=== PATIENT | male | born 1960 | race Caucasian/White ===

== ENCOUNTER 2024-08-21 12:58 | Emergency (ER) | payer BC, OTHER, SELFPAY ==
[2024-08-21 13:06] VITALS: BP 171/106; PULSE 82; RESP 18; TEMP 37; O2SAT 95; BMI 29.5
--- NOTE | 2024-08-21 14:25 | ED_ITS ---
HPI - Wound/Laceration <Gloria Hammond PA-C - Last Filed: 08/21/24 14:54> General Chief Complaint: Wound/Laceration Stated Complaint: laceration r hand, open wound Time Seen by Provider: 08/21/24 14:25 Source: patient Mode of arrival: Ambulatory History of Present Illness HPI narrative: Mr. Wheeler is a 64-year-old male with no reported past medical history who presents to the emergency department for a laceration to his right hand that occurred 3 days ago. Patient states while he was cutting tape he accidentally cut the palm of his right hand 3 days ago. He is left-hand dominant. States that it has not been bleeding and he has been covering it with Neosporin but he decided to get it checked out today. Denies drainage, bleeding, redness surrounding the wound, fevers, chills, decreased range of motion. He is unsure of his last tetanus shot. Related Data Previous Rx's Medication Instructions Recorded cephalexin 500 mg capsule 500 mg PO TID 5 days #15 caps 08/21/24 Allergies Allergy/AdvReac Type Severity Reaction Status Date / Time No Known Drug Allergies Allergy Verified 08/21/24 13:06 Review of Systems <Gloria Hammond PA-C - Last Filed: 08/21/24 14:54> Review of Systems ROS Unobtainable: All systems reviewed & are unremarkable except as noted in HPI and below Patient History <Gloria Hammond PA-C - Last Filed: 08/21/24 14:54> Social History Smoking Status: Never smoker Smoking Status: Never smoker Exam <Gloria Hammond PA-C - Last Filed: 08/21/24 14:54> Narrative Exam Narrative: GENERAL: 64 year old patient appears stated age. Well-developed patient, in no acute distress. HEAD: Atraumatic. Normocephalic. NECK: Trachea midline. Cervical ROM intact. CARDIOVASCULAR: Regular rate RESPIRATORY: ?Nonlabored respirations. ?Speaking in clear, full sentences. ? EXTREMITIES: Approximately 3 cm linear laceration on the right palm just proximal to the 2nd MCP, no active bleeding, appears to be older wound, no purul ent drainage or surrounding erythema. Full range of motion of the right hand and sensation intact to light touch distal to the wound. Brisk capillary refill and strong radial pulse. NEURO: AOx3. ?Clear speech. ?Moves all 4 extremities appropriately. SKIN: No rash or erythema of visible areas accept for right palm wound described above. Initial Vital Signs Initial Vital Signs: Vital Signs Temperature 98.6 F 08/21/24 13:06 Pulse Rate 82 08/21/24 13:06 Respiratory Rate 18 08/21/24 13:06 Blood Pressure 171/106 H 08/21/24 13:06 Pulse Oximetry 95 08/21/24 13:06 Oxygen Delivery Method Room Air 08/21/24 13:06 <Haritha Seaman DO - Last Filed: 08/24/24 08:00> Initial Vital Signs Initial Vital Signs: Vital Signs Temperature 98.6 F 08/21/24 13:06 Pulse Rate 82 08/21/24 13:06 Respiratory Rate 18 08/21/24 13:06 Blood Pressure 171/106 H 08/21/24 13:06 Pulse Oximetry 95 08/21/24 13:06 Oxygen Delivery Method Room Air 08/21/24 13:06 Course <Gloria Hammond PA-C - Last Filed: 08/21/24 14:54> Orders Ordered: Discontinued Medications Bacitracin (Bacitracin Oint 0.9 Gm Pckt) 1 applic TOP NOW ONE Stop: 08/21/24 14:33 Last Admin: 08/21/24 14:43 Dose: 1 applic Documented By: ANTHONY Cephalexin HCl (Cephalexin 250 Mg Capsule) 500 mg PO NOW ONE Stop: 08/21/24 14:38 Last Admin: 08/21/24 14:43 Dose: 500 mg Documented By: ANTHONY Diphtheria/Tetanus/Acell Pertussis (Tet,Diph,Pertuss(Acell),Vac/Pf 0.5 Ml Syringe) 0.5 ml IM .ONCE ONE Stop: 08/21/24 14:33 Last Admin: 08/21/24 14:43 Dose: 0.5 ml Documented By: ANTHONY Vital Signs Vital signs: Vital Signs - 8 hr 08/21/24 13:06 Temperature 98.6 F Pulse Rate 82 Respiratory Rate 18 Blood Pressure 171/106 H Pulse Oximetry 95 Oxygen Delivery Method Room Air <Haritha Seaman DO - Last Filed: 08/24/24 08:00> Orders Ordered: Discontinued Medications Bacitracin (Bacitracin Oint 0.9 Gm Pckt) 1 applic TOP NOW ONE Stop: 08/21/24 14:33 Last Admin: 08/21/24 14:43 Dose: 1 applic Documented By: ANTHONY Cephalexin HCl (Cephalexin 250 Mg Capsule) 500 mg PO NOW ONE Stop: 08/21/24 14:38 Last Admin: 08/21/24 14:43 Dose: 500 mg Documented By: ANTHONY Diphtheria/Tetanus/Acell Pertussis (Tet,Diph,Pertuss(Acell),Vac/Pf 0.5 Ml Syringe) 0.5 ml IM .ONCE ONE Stop: 08/21/24 14:33 Last Admin: 08/21/24 14:43 Dose: 0.5 ml Documented By: ANTHONY Vital Signs Vital signs: Vital Signs - 8 hr 08/21/24 13:06 Temperature 98.6 F Pulse Rate 82 Respiratory Rate 18 Blood Pressure 171/106 H Pulse Oximetry 95 Oxygen Delivery Method Room Air MDM - Wound/Laceration <Gloria Hammond PA-C - Last Filed: 08/21/24 14:54> Medical Records Attestation: I reviewed the patient's medical records. MDM Narrative Medical decision making narrative: 64-year-old male with no reported past medical history who presents to the emergency department for a laceration to his right hand that occurred 3 days ago. Unsure of last Tdap. On exam patient is in no acute distress, nontoxic appearing, he is requesting discharge as soon as possible. On his right hand he has a 3 cm linear laceration just proximal to the 2nd MCP on the palmar side. It is clear that this laceration is old, no active bleeding, no signs of infection at this time. While laceration would have benefitted from suture repair within 1st 24 hours, discussed case with the attending physician and due to it being 3 days we will allow wound to heal by secondary intention. Discussed with the patient and he is agreeable to the plan, understands the importance of proper wound care. We will update his Tdap, cover empirically with cephalexin. Wound was cleansed, bacitracin applied, nonadherent dressing applied. Advised patient follow up with primary care doctor next week for wound recheck but return to the ED if any worsening symptoms or signs of infection. Also recommended patient follow up with primary care doctor for blood pressure recheck as it was elevated in triage today. Patient is requesting discharge immediately, he was provided with a card to follow up with the primary care doctor. He has having no pain at this time, stable for discharge home. Antibiotics sent to pharmacy of choice. Discharge Plan Departure Patient Disposition: Home Clinical Impression: Laceration of hand, right Qualifiers: Encounter type: initial encounter Foreign body presence: without foreign body Qualified Code(s): S61.411A - Laceration without foreign body of right hand, initial encounter Instructions: DI for Open Laceration Activity Restrictions/Additional Instructions: Dear Mr. Wheeler, Thank you for coming into the emergency department today. You were evaluated for a laceration on your right hand. Because this laceration occurred 3 days ago, we are unable to close it with stitches as this will increase the risk for infection. Instead the wound will need to heal on its own from the bottom up. Bacitracin antibiotic ointment was applied to the laceration and a nonadherent dressing was applied. Please keep the dressing on your wound clean, dry, and intact for the next 12-24 hours. After this time, you may remove the dressing and gently clean the wound with soap and water, then pat dry. Keep the wound clean and covered. Avoid soaking the wound in any water such as a bath, pool, or the ocean. If you develop any signs of wound infection such as increased redness, pus drainage, streaking redness, or fevers, please return to the ER immediately for evaluation. We updated your tetanus shot today. Please follow up with your primary care doctor within the next 2-3 days for ER follow-up. (If you do not have a PCP you can call [phone]. ?to schedule an appointment with an [facility] Primary Care Provider) IF YOU DEVELOP ANY NEW OR WORSENING SYMPTOMS, RETURN TO THE ER! Please read the attached instructions, they highlight more specific treatments and interventions for you at home. Thank you for letting me participate in your care, Gloria Hammond PA-C Prescriptions: New cephalexin 500 mg capsule 500 mg PO TID 5 Days Qty: 15 0RF Referrals: Miscellaneous,Doctor, [Primary Care Provider] - Stand Alone Forms: Patient Portal/API/Survey ED Sign-out <Haritha Seaman DO - Last Filed: 08/24/24 08:00> Cosign ED Attending Cosignature Attestation: I was available for consultation.
[2024-08-21] MEDS: BACITRACIN OINT 0.9 GM PCKT 1 APPLIC TOP (14:43)
[2024-08-21] MEDS: TET,DIPH,PERTUSS(ACELL),VAC/PF 0.5 ML SYRINGE IM (14:43)
[2024-08-21] MEDS: cephALEXin 250 MG CAPSULE 500 MG PO (14:43)
== END 2024-08-21 15:00 | disposition home or self-care (01) ==
PROVIDERS: Emergency Provider Physician Assistant
DX: S61.411A Laceration without foreign body of right hand, initial encounter (principal); W26.9XXA Contact with unspecified sharp object(s), initial encounter; Z23 Encounter for immunization
CPT/HCPCS: 90471; 99284; 90715

== ENCOUNTER 2024-08-26 12:02 | Emergency (ER) | payer OTHER, SELFPAY ==
[2024-08-26 12:08] VITALS: BP 110/75; PULSE 85; RESP 17; TEMP 37.1; O2SAT 99; BMI 29.5
--- NOTE | 2024-08-26 13:06 | ED.RECABL ---
HPI - Recheck/Abnormal Lab/Rx <Gloria Hammond PA-C - Last Filed: 08/26/24 13:18> General Chief Complaint: Recheck/Abnormal Lab/Rx Stated Complaint: f/u on finger/hand laceration Time Seen by Provider: 08/26/24 13:06 Source: patient Mode of arrival: Family Vehicle History of Present Illness HPI narrative: Mr. Wheeler is a pleasant 64-year-old male who presents to the emergency department for a right hand wound check. I saw the patient on 08/21/2024 for a laceration to the palmar aspect of his right hand. The patient's laceration had occurred 3 days prior to his ED evaluation. At that time the patient's Tdap was updated and because the wound had occurred 3 days prior, we discussed that the wound needs to heal by secondary intention, on its own, without stitches to decrease risk of infection. The wound was cleansed and irrigated, bacitracin dressing applied, and he was started on a 5 day course of cephalexin. Patient is almost done with his oral antibiotics and reports that the wound is healing well however he comes to the ED for wound recheck and to request stitches. He denies any redness, drainage, fevers, chills, any other concerns. Related Data Allergies Allergy/AdvReac Type Severity Reaction Status Date / Time No Known Drug Allergies Allergy Verified 08/26/24 12:12 Review of Systems <Gloria Hammond PA-C - Last Filed: 08/26/24 13:18> Review of Systems ROS Unobtainable: All systems reviewed & are unremarkable except as noted in HPI and below Patient History <Gloria Hammond PA-C - Last Filed: 08/26/24 13:18> Social History Smoking Status: Never smoker Smoking Status: Never smoker Exam <Gloria Hammond PA-C - Last Filed: 08/26/24 13:18> Narrative Exam Narrative: GENERAL: 64 year old patient appears stated age. Well-developed patient, in no acute distress. CARDIOVASCULAR: Regular rate RESPIRATORY: ?Nonlabored respirations. ?Speaking in clear, full sentences. EXTREMITIES: Approximately 3 cm linear laceration in the right palm just proximal to the 2nd MCP. Healing well. No drainage or surrounding erythema. NEURO: AOx3. ?Clear speech. ?Moves all 4 extremities appropriately. SKIN: No rash or erythema of visible areas except for laceration described above. Initial Vital Signs Initial Vital Signs: Vital Signs Temperature 98.7 F 08/26/24 12:08 Pulse Rate 85 08/26/24 12:08 Respiratory Rate 17 08/26/24 12:08 Blood Pressure 110/75 08/26/24 12:08 Pulse Oximetry 99 08/26/24 12:08 Oxygen Delivery Method Room Air 08/26/24 12:08 <Haritha Seaman DO - Last Filed: 08/31/24 23:58> Initial Vital Signs Initial Vital Signs: Vital Signs Temperature 98.7 F 08/26/24 12:08 Pulse Rate 85 08/26/24 12:08 Respiratory Rate 17 08/26/24 12:08 Blood Pressure 110/75 08/26/24 12:08 Pulse Oximetry 99 08/26/24 12:08 Oxygen Delivery Method Room Air 08/26/24 12:08 Course <Gloria Hammond PA-C - Last Filed: 08/26/24 13:18> Orders Ordered: Discontinued Medications Bacitracin (Bacitracin Oint 0.9 Gm Pckt) 1 applic TOP NOW ONE Stop: 08/26/24 13:12 Last Admin: 08/26/24 13:21 Dose: 1 applic Documented By: NGA Vital Signs Vital signs: Vital Signs - 8 hr 08/26/24 12:08 Temperature 98.7 F Pulse Rate 85 Respiratory Rate 17 Blood Pressure 110/75 Pulse Oximetry 99 Oxygen Delivery Method Room Air <Haritha Seaman DO - Last Filed: 08/31/24 23:58> Orders Ordered: Discontinued Medications Bacitracin (Bacitracin Oint 0.9 Gm Pckt) 1 applic TOP NOW ONE Stop: 08/26/24 13:12 Last Admin: 08/26/24 13:21 Dose: 1 applic Documented By: NGA Vital Signs Vital signs: Vital Signs - 8 hr 08/26/24 12:08 Temperature 98.7 F Pulse Rate 85 Respiratory Rate 17 Blood Pressure 110/75 Pulse Oximetry 99 Oxygen Delivery Method Room Air MDM - Recheck/Abnormal Lab/Rx <Gloria Hammond PA-C - Last Filed: 08/26/24 13:18> Medical Records Attestation: I reviewed the patient's medical records. MDM Narrative Medical decision making narrative: 64-year-old male who presents to the emergency department for a right hand wound check. I saw the patient on 08/21/2024 for a laceration to the palmar aspect of his right hand. The patient's laceration had occurred 3 days prior to his ED evaluation. At that time the patient's Tdap was updated and because the wound had occurred 3 days prior, we discussed that the wound needs to heal by secondary intention, on its own, without stitches to decrease risk of infection. The wound was cleansed and irrigated, bacitracin dressing applied, and he was started on a 5 day course of cephalexin. Patient is almost done with his oral antibiotics and reports that the wound is healing well however he comes to the ED for wound recheck and to request stitches. Discussed with the patient that we can not do stitches today as this would greatly increase risk for wound infection and it is healing very well on its own. Wound looks great. Advised patient complete the course of antibiotics and then continue with topical bacitracin and daily wound cleansing. Informed the patient that because we are allowing this to heal by secondary intention it will take much longer than a normal wound. Discussed signs and symptoms of infection to return to the ED for otherwise advised patient follow up with his primary care doctor for wound recheck in 1-2 weeks. Patient verbalized understanding of all information, bacitracin dressing applied, he is stable for discharge home. Discharge Plan Departure Patient Disposition: Home Clinical Impression: Encounter for wound re-check Instructions: DI for Wound Infection Activity Restrictions/Additional Instructions: Dear Liam, Thank you for coming to the emergency department. Today we rechecked a wound on your right hand. It appears to be healing very well. We are only able to stitch/suture wounds within 12-24 hours after they occur. Because this wound happened numerous days ago, we can not close it with stitches as this would cause increased risk for infection. Please continue keeping the wound covered daily with bacitracin or other antibiotic ointment and a dressing. Clean the wound 1-2 times daily pat dry, and cover. Do not soak the wound in bath water, pool water or ocean water. Please return to the emergency department immediately if you develop redness, fevers, pus drainage from the wound, streaking redness up the arm or any other concerns for infection. Otherwise please follow up with your primary care doctor for wound recheck in 1-2 weeks. (If you do not have a PCP you can call [phone]. ?to schedule an appointment with an [facility] Primary Care Provider) IF YOU DEVELOP ANY NEW OR WORSENING SYMPTOMS, RETURN TO THE ER! Please read the attached instructions, they highlight more specific treatments and interventions for you at home. Thank you for letting me participate in your care, Gloria Hammond PA-C Stand Alone Forms: Patient Portal/API/Survey ED Sign-out <Haritha Seaman, - Last Filed: 08/31/24 23:58> Cosign ED Attending Renetta Attestation: I was available for consultation.
[2024-08-26] MEDS: BACITRACIN OINT 0.9 GM PCKT 1 APPLIC TOP (13:21)
== END 2024-08-26 13:23 | disposition home or self-care (01) ==
PROVIDERS: Emergency Provider Physician Assistant
DX: S61.411D Laceration without foreign body of right hand, subsequent encounter (principal); X58.XXXD Exposure to other specified factors, subsequent encounter
CPT/HCPCS: 99282